=== PATIENT | male | born 1970 | race Caucasian/White ===

== ENCOUNTER 2018-01-29 20:54 | Emergency (ER) | payer OTHER ==
--- NOTE | 2018-01-29 21:31 | RAD ---
TWO VIEWS CHEST: Comparison: 09-13-16 History: Mid sternal chest pain. FINDINGS: Two views of the chest show normal sized cardiomediastinal silhouette. There is no evidence of consol idation, mass, or pleural effusion. The bones are unremarkable. IMPRESSION: No evidence of acute cardiopulmonary disease. POS: [facility]
[2018-01-29 21:33] LABS: #Basophils 0.1 thou/uL (0.0-0.2); #Eosinphils 0.2 thou/uL (0.0-0.7); #Lymphocytes 3.2 thou/uL (1.20-3.40); #Monocytes 0.7 thou/uL (0.11-0.59); #Neutrophils 3.4 thou/uL (1.40-6.50); %Basophils 0.8 % (0.0-1.0); %Eosinophils 2.8 % (0.0-10.0); %Lymphocytes 41.8 % (21.0-51.0); %Monocytes 9.4 % (0.0-10.0); %Neutrophils 45.2 % (42.0-75.0); Hemoglobin 15.1 g/dL (14.0-18.0); Mean Corpuscular HGB CONC 34.9 g/dL (32.0-36.0); Mean Corpuscular Volume 80.2 fL (78.0-98.0); Mean Platelet Volume 7.5 fL (7.4-10.4); Platelet Count 239 thou/uL (130-400); RBC Distribution Width 12.9 % (11.5-14.5); Red Blood Cell (RBC) Count 5.39 mill/uL (4.70-6.10); White Blood Cell (WBC) Count 7.6 thou/uL (4.8-10.8)
[2018-01-29 21:51] LABS: ALT (SGPT) 28 U/L (8-55); AST (SGOT) 24 U/L (5-34); Albumin 4.2 g/dL (3.5-5.0); Alkaline Phosphatase 61 U/L (40-150); Anion Gap 14 mmol/L (10-20); BUN (Urea Nitrogen) 21 mg/dL (8.9-20.6); Bilirubin, Total 0.5 mg/dL (0.2-1.2); CK (CPK) 174 U/L (30-200); Calc. Creatinine Clearance 0 mL/min (70-130); Calcium 9.8 mg/dL (7.8-10.44); Carbon Dioxide 21 mmol/L (22-29); Chloride 108 mmol/L (98-107); Estimated GFR-MDRD 77; Globulin 3.3 g/dL (2.4-3.5); Glucose 111 mg/dL (70-105); Potassium 3.8 mmol/L (3.5-5.1); Protein, Total 7.5 g/dL (6.0-8.3); Sodium 139 mmol/L (136-145)
[2018-01-29 21:56] LABS: CKMB 3.5 ng/mL (0-6.6); Troponin I 0.017 ng/mL (< 0.028)
== END 2018-01-29 23:14 | disposition home or self-care (01) ==
LOC: ERS 20:54
DX: J45.901 Unspecified asthma with (acute) exacerbation (principal); I10 Essential (primary) hypertension; Z79.899 Other long term (current) drug therapy
CPT/HCPCS: 71046; 80053; 82553; 84484; 85025; 93005; 94640; 94760; J7620

== ENCOUNTER 2018-04-10 14:14 | Emergency (ER) | payer OTHER ==
[2018-04-10 14:41] LABS: #Basophils 0.1 thou/uL (0.0-0.2); #Eosinphils 0.2 thou/uL (0.0-0.7); #Lymphocytes 2.5 thou/uL (1.20-3.40); #Monocytes 0.7 thou/uL (0.11-0.59); #Neutrophils 3.4 thou/uL (1.40-6.50); %Basophils 0.9 % (0.0-1.0); %Eosinophils 2.6 % (0.0-10.0); %Lymphocytes 36.7 % (21.0-51.0); %Monocytes 10.4 % (0.0-10.0); %Neutrophils 49.4 % (42.0-75.0); Hemoglobin 14.5 g/dL (14.0-18.0); Mean Corpuscular HGB CONC 33.8 g/dL (32.0-36.0); Mean Corpuscular Hemoglobin 28.1 pg (27.0-31.0); Mean Corpuscular Volume 83.1 fL (78.0-98.0); Mean Platelet Volume 7.4 fL (7.4-10.4); Platelet Count 235 thou/uL (130-400); RBC Distribution Width 12.8 % (11.5-14.5); Red Blood Cell (RBC) Count 5.16 mill/uL (4.70-6.10); White Blood Cell (WBC) Count 6.8 thou/uL (4.8-10.8)
--- NOTE | 2018-04-10 15:24 | RAD ---
CHEST TWO VIEWS: History: Dyspnea. Comparison: 01-29-18 FINDINGS: Normal cardiac silhouette. The pulmonary vessels and hilum are normal. Costophrenic angles are clear. No mass. No consolidation. No pneumothorax or osseous abnormality. IMPRESSION: No acute cardiopulmonary process. POS: [facility]
[2018-04-10 15:29] LABS: ALT (SGPT) 25 U/L (8-55); AST (SGOT) 21 U/L (5-34); Albumin 4.2 g/dL (3.5-5.0); Alkaline Phosphatase 61 U/L (40-150); Anion Gap 11 mmol/L (10-20); BUN (Urea Nitrogen) 15 mg/dL (8.9-20.6); Bilirubin, Total 0.5 mg/dL (0.2-1.2); CK (CPK) 140 U/L (30-200); Calc. Creatinine Clearance 0 mL/min (70-130); Carbon Dioxide 28 mmol/L (22-29); Chloride 106 mmol/L (98-107); Estimated GFR-MDRD 71; Globulin 3.2 g/dL (2.4-3.5); Glucose 88 mg/dL (70-105); Potassium 4.3 mmol/L (3.5-5.1); Protein, Total 7.4 g/dL (6.0-8.3); Sodium 141 mmol/L (136-145)
== END 2018-04-10 17:16 | disposition home or self-care (01) ==
LOC: ERS 14:14
DX: J45.901 Unspecified asthma with (acute) exacerbation (principal); J20.9 Acute bronchitis, unspecified; I10 Essential (primary) hypertension; Z79.899 Other long term (current) drug therapy
CPT/HCPCS: 36415; 71046; 80053; 82550; 84484; 85025; 93005

== ENCOUNTER 2018-11-21 15:26 | Outpatient (CLI) | payer OTHER ==
[2018-11-21 16:57] LABS: #Eosinphils 0.4 thou/uL (0.0-0.7); #Lymphocytes 2.7 thou/uL (1.20-3.40); #Monocytes 0.7 thou/uL (0.11-0.59); #Neutrophils 4.1 thou/uL (1.40-6.50); %Basophils 0.6 % (0.0-1.0); %Eosinophils 4.5 % (0.0-10.0); %Lymphocytes 33.7 % (21.0-51.0); %Monocytes 9.1 % (0.0-10.0); Hemoglobin 14.1 g/dL (14.0-18.0); Mean Corpuscular HGB CONC 35.5 g/dL (32.0-36.0); Mean Corpuscular Volume 81.5 fL (78.0-98.0); Mean Platelet Volume 7.5 fL (7.4-10.4); Platelet Count 233 thou/uL (130-400); RBC Distribution Width 13.1 % (11.5-14.5); Red Blood Cell (RBC) Count 4.86 mill/uL (4.70-6.10); White Blood Cell (WBC) Count 7.9 thou/uL (4.8-10.8)
[2018-11-21 17:18] LABS: ALT (SGPT) 24 U/L (8-55); AST (SGOT) 18 U/L (5-34); Albumin 4.4 g/dL (3.5-5.0); Alkaline Phosphatase 55 U/L (40-150); Anion Gap 11 mmol/L (10-20); BUN (Urea Nitrogen) 11 mg/dL (8.9-20.6); Bilirubin, Total 0.6 mg/dL (0.2-1.2); Calc. Creatinine Clearance 0 mL/min (70-130); Calcium 9.9 mg/dL (7.8-10.44); Carbon Dioxide 26 mmol/L (22-29); Chloride 105 mmol/L (98-107); Estimated GFR-MDRD 71; Globulin 2.8 g/dL (2.4-3.5); Glucose 80 mg/dL (70-105); Potassium 4.3 mmol/L (3.5-5.1); Protein, Total 7.2 g/dL (6.0-8.3); Sodium 138 mmol/L (136-145)
== END 2018-11-21 15:27 | disposition home or self-care (01) ==
LOC: LABBT 15:26
PROVIDERS: ATTEND Internal Medicine Cardiovascular Disease
DX: Z01.812 Encounter for preprocedural laboratory examination (principal); I49.9 Cardiac arrhythmia, unspecified
CPT/HCPCS: 80053; 85025

== ENCOUNTER 2018-11-27 05:43 | Day surgery (SDC) | payer OTHER ==
[2018-11-21 15:32] VITALS: BMI 31.6
[2018-11-27] MEDS ORDERED: Lidocaine 1% (PF) 30 ML VIAL ONE (06:35)
[2018-11-27] MEDS ORDERED: Midazolam HCl 2 mg/2 ml Vial ONE (07:19)
[2018-11-27] MEDS ORDERED: Fentanyl 100 MCG/2 ML VIAL ONE (07:19)
--- NOTE | 2018-11-27 08:54 | HP ---
DATE OF CONSULTATION: CHIEF COMPLAINT: Abnormal stress, chest pain, and nonsustained VT and a history of apical hypertrophy. HISTORY OF PRESENT ILLNESS: Mr. Morgan is a pleasant 48-year-old gentleman who was seen and evaluated in the past. The patient presented to an outlying facility for chest pain. He underwent a noninvasive stress study and was found to have apical ischemia. He also has a history of apical hypertrophy in addition to nonsustained VT. No recurrent chest pain present. PAST MEDICAL HISTORY: Asthma, hypertension, hyperlipidemia, nonsustained VT, obstructive sleep apnea, ankle surgery. HOME MEDICATIONS: Include 1. Amlodipine. 2. Lisinopril. 3. Albuterol. 4. Atenolol. REVIEW OF SYSTEMS: A 10-point review of systems is reviewed as above, otherwise negative. PHYSICAL EXAMINATION: GENERAL: Patient is a pleasant male who is in no acute distress. The patient appears their stated age. VITAL SIGNS: Blood pressure 120/70, pulse 80, respirations 20. NEUROLOGIC: The patient is alert and oriented x3 with no focal neurologic deficits. HEENT: Sclerae without icterus. Mouth has moist mucous membranes with normal pallor. NECK: No JVD. Carotid upstroke brisk. No bruits bilaterally. LUNGS: Clear to auscultation with unlabored respirations. BACK: No scoliosis or kyphosis. CARDIAC: Regular rate and rhythm with normal S1 and S2. No S3 or S4 noted. No significant rubs, murmurs, thrills, or gallops noted throughout the precordium. PMI is not displaced. There is no parasternal heave. ABDOMEN: Soft, nontender, nondistended. No peritoneal signs present. No hepatosplenomegaly. No abnormal striae. EXTREMITIES: 2+ femoral and 2+ dorsalis pedis pulses. No cyanosis, clubbing, or edema. SKIN: No gross abnormalities. PERTINENT LABORATORY DATA: Hemoglobin of 14.1, hematocrit 39.6. IMPRESSION: 1. Abnormal stress study. 2. Nonsustained ventricular tachycardia. 3. Cardiomyopathy. RECOMMENDATIONS: Given recent admission for chest pressure, abnormal stress, nonsustained VT and apical hypertrophy, would recommend proceed with coronary angiography plus PCI. I discussed procedure in full detail with Mr. Morgan. The risks included, not limited to the following: , stroke, AK, need for emergency surgery, loss of limb, bleeding, and infection, as well as a reaction to the dye causing kidney failure and needing long-term dialysis. I also discussed the risks of PCI to include all of the above including coronary dissection and perforation in addition to acute stent thrombosis and restenosis. All questions about the procedure were answered. Given the above, the patient agreed to proceed with the procedure. We will proceed with a drug coated stent if needed. Further recommendations pending the above. Job ID: [id number]
[2018-11-27] MEDS ORDERED: Iopamidol 370 76% 100 ML VIAL ONE (11:24)
== END 2018-11-27 13:32 | disposition home or self-care (01) ==
LOC: CCL 05:43
PROVIDERS: ATTEND Internal Medicine Cardiovascular Disease
PROC: 4A023N7 Measurement of Cardiac Sampling and Pressure, Left Heart, Percutaneous Approach (ICD-10-PCS; principal; 2018-11-27)
PROC: B2111ZZ Fluoroscopy of Multiple Coronary Arteries using Low Osmolar Contrast (ICD-10-PCS; principal; 2018-11-27)
DX: R07.9 Chest pain, unspecified (principal); I42.2 Other hypertrophic cardiomyopathy; I47.2 Ventricular tachycardia; I10 Essential (primary) hypertension; E78.5 Hyperlipidemia, unspecified; J45.909 Unspecified asthma, uncomplicated; G47.33 Obstructive sleep apnea (adult) (pediatric); Z79.899 Other long term (current) drug therapy; Z88.8 Allergy status to other drugs, medicaments and biological substances
CPT/HCPCS: 76942; 93458; 99152; C1769; J1644; J2001; J2250; J3010; Q9967

== ENCOUNTER 2019-02-11 06:14 | Emergency (ER) | payer OTHER ==
[2019-02-11 07:27] LABS: #Lymphocytes 1.1 thou/uL (1.20-3.40); #Monocytes 1.1 thou/uL (0.11-0.59); #Neutrophils 9.2 thou/uL (1.40-6.50); %Basophils 0.2 % (0.0-1.0); %Eosinophils 0.3 % (0.0-10.0); %Lymphocytes 9.8 % (21.0-51.0); %Monocytes 9.3 % (0.0-10.0); %Neutrophils 80.5 % (42.0-75.0); Hemoglobin 15.4 g/dL (14.0-18.0); Mean Corpuscular HGB CONC 34.3 g/dL (32.0-36.0); Mean Corpuscular Hemoglobin 27.8 pg (27.0-31.0); Mean Corpuscular Volume 81.1 fL (78.0-98.0); Mean Platelet Volume 7.7 fL (7.4-10.4); Platelet Count 196 thou/uL (130-400); RBC Distribution Width 12.8 % (11.5-14.5); Red Blood Cell (RBC) Count 5.53 mill/uL (4.70-6.10); White Blood Cell (WBC) Count 11.4 thou/uL (4.8-10.8)
[2019-02-11 07:49] LABS: ALT (SGPT) 31 U/L (8-55); AST (SGOT) 30 U/L (5-34); Albumin 4.2 g/dL (3.5-5.0); Alkaline Phosphatase 67 U/L (40-110); Anion Gap 11 mmol/L (10-20); BUN (Urea Nitrogen) 10 mg/dL (8.9-20.6); Bilirubin, Total 1.1 mg/dL (0.2-1.2); Calc. Creatinine Clearance 0 mL/min (70-130); Calcium 9.5 mg/dL (7.8-10.44); Carbon Dioxide 27 mmol/L (22-29); Chloride 105 mmol/L (98-107); Estimated GFR-MDRD 74; Globulin 3.2 g/dL (2.4-3.5); Glucose 137 mg/dL (70-105); Protein, Total 7.4 g/dL (6.0-8.3); Sodium 139 mmol/L (136-145)
[2019-02-11 09:22] LABS: CKMB 2.6 ng/mL (0-6.6)
--- NOTE | 2019-02-11 10:07 | RAD ---
CHEST 2 VIEWS: HISTORY: Shortness of breath, difficulty breathing, right rib pain. COMPARISON: 04/10/2018. FINDINGS: Placement of a left ICD since the prior study. Borderline heart size. No confluent pneumonia, overt edema, or pleural effusion. IMPRESSION: No significant acute intrathoracic disease. POS: [facility]
== END 2019-02-11 09:35 | disposition left against medical advice (07) ==
LOC: ERS 06:14
DX: R07.9 Chest pain, unspecified (principal); R06.00 Dyspnea, unspecified; R79.89 Other specified abnormal findings of blood chemistry; I10 Essential (primary) hypertension; J45.909 Unspecified asthma, uncomplicated; Z79.51 Long term (current) use of inhaled steroids; Z79.899 Other long term (current) drug therapy
CPT/HCPCS: 71046; 80053; 82553; 83880; 84484; 85025; 87040; 87804; 93005

== ENCOUNTER 2021-03-10 13:10 | Emergency (ER) | payer BC ==
[2021-03-10 16:11] LABS: Bilirubin Negative (Negative); Blood, Urine Negative (Negative); Clarity Clear (Clear); Glucose, Urine (Dipstick) Normal (Negative); Ketone, Urine Negative (Negative); Leukocyte Negative Leu/uL (Negative); Nitrite Negative (Negative); Protein, Urine (Dipstick) Negative (Neg-Trace); Specific Gravity, Urine 1.007 (1.002-1.036); Urobilinogen Normal mg/dL (Less than 2)
[2021-03-10] MEDS ORDERED: Ketorolac Tromethamine 30 MG/ML VIAL ONE (20:04)
== END 2021-03-10 20:53 | disposition home or self-care (01) ==
LOC: ERS 13:10
DX: N50.811 Right testicular pain (principal); I10 Essential (primary) hypertension
CPT/HCPCS: 76870; 81003; 93976; 96372; J1885

== ENCOUNTER 2022-06-10 18:47 | Observation (INO) | payer BC ==
[2022-06-10 22:10] VITALS: BMI 33.5
[2022-06-10] MEDS ORDERED: Acetaminophen 325 MG TAB PO PRN (22:24)
[2022-06-10] MEDS ORDERED: Ondansetron ODT 4 MG TAB PO PRN (22:24)
[2022-06-10] MEDS ORDERED: Ondansetron PF 4 MG/2 ML Vial IVP PRN (22:24)
[2022-06-10] MEDS ORDERED: HYDROcodone/Acetaminophen 5/325 mg Tablet PO PRN (22:24)
[2022-06-10] MEDS ORDERED: Nitroglycerin 0.4 MG TAB (25 Tab Bottle) SL PRN (22:54)
[2022-06-10 23:09] LABS: Magnesium 1.9 mg/dL (1.6-2.6)
[2022-06-10] MEDS ORDERED: Electrolyte Replacement Protocol 1 EACH FS SCH (23:30)
[2022-06-11] MEDS ORDERED: Magnesium 2 GM/50 ML(in water) 2 GM in Premix Bag 1 BAG IVPB SCH (01:15)
[2022-06-11 03:11] LABS: Troponin I 0.053 ng/mL (< 0.028)
[2022-06-11 05:15] LABS: #Basophils 0.1 thou/uL (0.0-0.2); #Eosinphils 0.1 thou/uL (0.0-0.7); #Monocytes 0.9 thou/uL (0.11-0.59); #Neutrophils 7.9 thou/uL (1.40-6.50); %Basophils 0.7 % (0.0-1.0); %Eosinophils 1.2 % (0.0-10.0); %Lymphocytes 18.3 % (21.0-51.0); %Monocytes 7.9 % (0.0-10.0); %Neutrophils 72.1 % (42.0-75.0); Hemoglobin 14.3 g/dL (14.0-18.0); Mean Corpuscular HGB CONC 35.2 g/dL (32.0-36.0); Mean Corpuscular Hemoglobin 28.7 pg (27.0-31.0); Mean Corpuscular Volume 81.7 fl (78.0-98.0); Mean Platelet Volume 7.7 fL (7.4-10.4); Platelet Count 196 10x3/uL (130-400); RBC Distribution Width 12.9 % (11.5-14.5); Red Blood Cell (RBC) Count 4.97 mill/uL (4.70-6.10)
[2022-06-11 05:32] LABS: Anion Gap 14 mmol/L (10-20); BUN (Urea Nitrogen) 18 mg/dL (8.4-25.7); Calc. Creatinine Clearance 112 mL/min (70-130); Calcium 9.1 mg/dL (7.8-10.44); Carbon Dioxide 23 mmol/L (22-29); Cardiac Risk 6.1 (Less than 4.5); Chloride 105 mmol/L (98-107); Cholesterol 221 mg/dl (< 200 Desired); Estimated GFR 87; Glucose 121 mg/dL (70-105); HDL Cholesterol 36 mg/dL (>60 Neg Risk); LDL Cholesterol, Calculated 156 mg/dL; Potassium 3.7 mmol/L (3.5-5.1); Sodium 138 mmol/L (136-145); Triglycerides 144 mg/dL (Less than 150); Troponin I 0.047 ng/mL (< 0.028)
[2022-06-11] MEDS ORDERED: Albuterol 200 PUFF (6.7GM INHALER) INH PRN (08:48)
[2022-06-11] MEDS ORDERED: Montelukast Sodium 10 mg Tablet PO SCH (09:00)
[2022-06-11] MEDS ORDERED: Communication Order-Pharmacy FS SCH (09:00)
[2022-06-11] MEDS ORDERED: Aspirin Chewable 81 MG TAB PO SCH (09:00)
[2022-06-11] MEDS ORDERED: Sodium Chloride 0.9% 1,000 ML IV SCH (09:00)
[2022-06-11 09:11] LABS: Hemoglobin A1c 5.3 % (4.0-6.0)
[2022-06-11] MEDS ORDERED: Iopamidol 370 76% 100 ML VIAL ONE (10:16)
[2022-06-11] MEDS ORDERED: Nitroglycerin 50 MG/250 ML BOT 250 ML ONE (11:13)
[2022-06-11] MEDS ORDERED: Heparin 10,000 UNITS/ 10 ML VIAL ONE (11:13)
[2022-06-11] MEDS ORDERED: Verapamil 5 MG/2 ML VIAL ONE (11:13)
[2022-06-11] MEDS ORDERED: Lidocaine 1% (PF) 30 ML VIAL ONE (11:13)
[2022-06-11 11:45] VITALS: BP 154/80
[2022-06-11] MEDS ORDERED: fentaNYL 50 mcg/mL 1 mL Vial ONE (12:10)
[2022-06-11] MEDS ORDERED: Midazolam HCl 2 mg/2 ml Vial ONE (12:10)
[2022-06-11 13:14] VITALS: TEMP 98.3
[2022-06-11] MEDS ORDERED: Lisinopril/Hydrochlorothiazide 20/25 mg Tablet PO SCH (21:00)
== END 2022-06-11 14:17 | disposition home or self-care (01) ==
LOC: 2SW 21:46
PROVIDERS: ADMIT Internal Medicine; ATTEND Internal Medicine
PROC: 4A023N7 Measurement of Cardiac Sampling and Pressure, Left Heart, Percutaneous Approach (ICD-10-PCS; principal; 2022-06-11)
PROC: B2111ZZ Fluoroscopy of Multiple Coronary Arteries using Low Osmolar Contrast (ICD-10-PCS; 2022-06-11)
DX: R07.89 Other chest pain (principal); R77.8 Other specified abnormalities of plasma proteins; I25.10 Atherosclerotic heart disease of native coronary artery without angina pectoris; I11.9 Hypertensive heart disease without heart failure; E78.5 Hyperlipidemia, unspecified; I42.9 Cardiomyopathy, unspecified; G47.33 Obstructive sleep apnea (adult) (pediatric); Z87.891 Personal history of nicotine dependence; Z79.899 Other long term (current) drug therapy; Z88.8 Allergy status to other drugs, medicaments and biological substances; Z95.810 Presence of automatic (implantable) cardiac defibrillator
CPT/HCPCS: 36415; 80048; 80061; 83036; 83735; 83880; 84484; 85025; 93458; 96374; 99152; C1769; C1894; G0378; J1644; J2001; J2250; J3010; J3475; J7050